=== PATIENT | male | born 1970 | race Caucasian/White ===

== ENCOUNTER 2020-07-10 13:00 | Inpatient (IN) ==
[2020-07-10] MEDS ORDERED: SODIUM CHLORIDE 0.9% 1000ML 1,000 ML IV ONE (13:45)
--- NOTE | 2020-07-10 13:53 | Emergency Department Note ---
History of Present Illness General Chief complaint: Weakness Stated complaint: WEAKNESS Time Seen by Provider: 07/10/20 13:36 Source: patient Mode of arrival: ambulatory Limitations: no limitations History of Present Illness This patient is a 50-year-old male who comes in after feeling dizzy and lightheaded since yesterday. He denies spinning but says he feels off balance when walking he fell 3 times today and 4 times yesterday. He said some chronic ringing in his left ear. No headache. He does not feel is any change with movement. No neck pain or stiffness. Denies chest pain or shortness of breath or abdominal pain. No blood or melena stool no dysuria or hematuria. Denies any change in vision or difficulty speaking or swallowing. He did get bit by a tick in January in his left chest. He removed it there is no rash. No history of similar. Home Medications Medication Instructions Recorded Confirmed Type lansoprazole [Prevacid 24Hr] 15 mg PO QAM 07/10/20 07/10/20 History Allergies Allergy/AdvReac Type Severity Reaction Status Date / Time No Known Allergies Allergy Verified 10/06/19 09:13 Past Med/Surg History Medical History (Updated 07/10/20 @ 19:35 by Fortino Augustin MD) Toe amputee Surgical History H/O hernia repair Family History Other Myocardial infarction Denies family history of Ovarian cancer Prostate cancer Breast cancer Colorectal cancer Social History Smoking Status: Current every day smoker Tobacco Type: Cigarettes Hx Alcohol Use: No Hx Substance Use: No marital status: Single Current Living Situation: Family current occupational status: unemployed How many Children do You have: 4 Feels Safe at Home: Yes caffeine: Yes Dental Care, Regularly: No Physical Activity Frequency: Does not Exercise Seatbelt Use: never Sunscreen Use: No Immunizations: Past medical historydenies Social history 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 He does smoke heavily. He denies alcohol use. Denies drug use. Review of Systems A total of 10 systems reviewed and were otherwise negative Physical Exam Vital Signs Vital Signs - 24 hr 07/10/20 13:14 05/02/21 13:36 07/10/20 13:38 Temperature 36.9 C Temperature Source Temporal Artery Scan Pulse Rate 92 H 96 H Pulse Rate [Apical] Pulse Rate from SpO2 Sensor 99 H Respiratory Rate 18 16 Respiratory Effort / Characteristics Non-Labored Respiratory Depth Normal Blood Pressure 152/102 H 130/96 Blood Pressure [Left Arm] Blood Pressure Mean 118 107 Blood Pressure Mean [Left Arm] Blood Pressure Position Sitting Pulse Oximetry 97 97 95 Oxygen Delivery Method Room Air Room Air Room Air Sepsis Recent Fever Within 48 Hours No Sepsis New/Unexplained Change in Mental Status No Sepsis Action Taken by Nursing No Action Required 07/10/20 14:00 07/10/20 14:01 07/10/20 14:31 Temperature Temperature Source Pulse Rate 98 H 94 H 83 Pulse Rate [Apical] Pulse Rate from SpO2 Sensor 97 H 95 H 84 Respiratory Rate 20 23 15 Respiratory Effort / Characteristics Respiratory Depth Blood Pressure 135/100 151/102 H Blood Pressure [Left Arm] Blood Pressure Mean 111 118 Blood Pressure Mean [Left Arm] Blood Pressure Position Pulse Oximetry 95 96 97 Oxygen Delivery Method Room Air Room Air Sepsis Recent Fever Within 48 Hours Sepsis New/Unexplained Change in Mental Status Sepsis Action Taken by Nursing 07/10/20 14:32 07/10/20 15:00 07/10/20 15:01 Temperature Temperature Source Pulse Rate 80 73 80 Pulse Rate [Apical] Pulse Rate from SpO2 Sensor 80 79 Respiratory Rate 19 17 16 Respiratory Effort / Characteristics Respiratory Depth Blood Pressure 127/81 Blood Pressure [Left Arm] Blood Pressure Mean 96 Blood Pressure Mean [Left Arm] Blood Pressure Position Pulse Oximetry 95 96 Oxygen Delivery Method Sepsis Recent Fever Within 48 Hours Sepsis New/Unexplained Change in Mental Status Sepsis Action Taken by Nursing 07/10/20 15:30 07/10/20 16:00 07/10/20 18:22 Temperature Temperature Source Pulse Rate 67 Pulse Rate [Apical] 80 Pulse Rate from SpO2 Sensor 67 77 Respiratory Rate 19 18 Respiratory Effort / Characteristics Respiratory Depth Blood Pressure 122/67 136/76 Blood Pressure [Left Arm] 149/91 H Blood Pressure Mean 85 96 Blood Pressure Mean [Left Arm] 110 Blood Pressure Position Pulse Oximetry 95 96 95 Oxygen Delivery Method Room Air Sepsis Recent Fever Within 48 Hours Sepsis New/Unexplained Change in Mental Status Sepsis Action Taken by Nursing General: Well developed well nourished middle-age male who appears in no acute distress, breathing comfortably on room air. Normal speech HEENT: Normal cephalic atraumatic.sclera anicteric pupils are equal round and reactive to light. Extraocular movements are intact. Oropharynx is pink with moist mucous membranes. No swelling of the mouth lips or tongue. Neck: Supple with a midline trachea. No meningeal signs or stiffness, no JVD or bruits. No Stridor. Chest: Clear to auscultation bilaterally. No wheezes or rhonchi. No increased work of breathing. Heart: Regular rate and rhythm without murmurs or gallops. Abdomen: Soft nontender, nondistended without rebound guarding or rigidity. Extremities: No cyanosis clubbing or edema. No calf tenderness or assymetry Spine/Back. Non tender to palpation. No CVA tenderness Skin: Good turgor without rashes. Neurologic exam: Cranial nerves two through 12 are intact. Motor and sensation are intact and symmetrical throughout. Finger-nose intact. No pronator drift. Course Administered Medications Discontinued Medications Aspirin (Aspirin 81 Mg Chew) 324 mg PO NOW STA Stop: 07/10/20 19:29 Last Admin: 07/10/20 19:43 Dose: 324 mg Documented by: [id number] Sodium Chloride (Nss 1000ml) 1,000 mls @ 999 mls/hr IV .Q1H1M ONE Stop: 07/10/20 14:45 Last Infusion: 07/10/20 19:13 Dose: 0 mls/hr Documented by: [id number] Admin: 07/10/20 14:33 Dose: 999 mls/hr Documented by: [id number] Ioversol (Optiray 350 500ml) 120 ml IV ONCE ONE Stop: 07/10/20 15:12 Last Admin: 07/10/20 15:11 Dose: 120 ml Documented by: [id number] Medical Decision Making Differential Diagnosis Vertigo, intracranial mass, intracranial hemorrhage, vascular disease, cardiac disease, electrolyte or metabolic abnormality, anemia, sepsis Medical Records Attestation: I reviewed the patient's medical records. Home Medications Current Medication List: was personally reviewed by me Laboratory Data Attestation: I reviewed the patient's lab results. Result diagrams: 07/10/20 14:05 07/10/20 14:05 Lab Results 07/10/20 07/10/20 07/10/20 Range/Units 13:35 14:05 14:05 WBC 9.51 (4.8-10.8) K/uL RBC 5.26 (4.7-6.1) M/uL Hgb 16.5 (14.0-18.0) g/dL Hct 47.5 (42-52) % MCV 90.3 (80-100) fL MCH 31.4 (25-34) pg MCHC 34.7 (32-36) g/dL RDW Std Deviation 41.7 (36.4-46.3) fL RDW Coeff of Jojo 12.6 (11.5-14.5) % Plt Count 236 (130-400) K/uL MPV 9.6 (7.4-10.4) fL Immature Gran % (Auto) 0.2 % Neut % (Auto) 64.2 % Lymph % (Auto) 26.7 % [place] % (Auto) 8.1 % Eos % (Auto) 0.6 % Baso % (Auto) 0.2 % Neut # (Auto) 6.10 (1.4-6.5) K/uL Lymph # (Auto) 2.54 (1.2-3.4) K/uL [place] # (Auto) 0.77 H (0.11-0.59) K/uL Eos # (Auto) 0.06 (0-0.5) K/uL Baso # (Auto) 0.02 (0-0.2) K/uL Immature Gran # (Auto) 0.02 (0.00-0.02) K/uL PT (9.0-12.0) Seconds INR (0.9-1.1) APTT (21.0-31.0) Seconds PTT Ratio Sodium 140 (136-145) mmol/L Potassium 4.2 (3.5-5.1) mmol/L Chloride 108 H (98-107) mmol/L Carbon Dioxide 26 (21-32) mmol/L Anion Gap 6.0 (3-11) BUN 13 (7-18) mg/dl Creatinine 1.01 (0.6-1.4) mg/dl Est Cr Clr Drug Dosing 95.3 ml/min Est GFR ( Amer) 101.5 Est GFR (Non-Af Amer) 87.5 BUN/Creatinine Ratio 13.1 (10-20) Glucose 88 (70-99) mg/dl Calcium 8.6 (8.5-10.1) mg/dl Magnesium 2.2 (1.8-2.4) mg/dl Total Bilirubin 0.4 (0.2-1) mg/dl AST 12 L (15-37) U/L ALT 20 (12-78) U/L Alkaline Phosphatase 77 (45-117) U/L Troponin I < 0.015 (0-0.045) ng/ml Total Protein 6.8 (6.4-8.2) gm/dl Albumin 3.8 (3.4-5.0) gm/dl Globulin 3.0 (2.5-4.0) gm/dl Albumin/Globulin Ratio 1.3 (0.9-2) Urine Color Dark Yellow Urine Appearance Clear (Clear) Urine pH 6.5 (4.5-7.5) Ur Specific [place] 1.020 (1.000-1.030) Urine Protein Negative (Negative) Urine Glucose (UA) Negative (Negative) Urine Ketones 2+ H (Negative) Urine Blood Negative (Negative) Urine Nitrite Negative (Negative) Urine Bilirubin Negative (Negative) Urine Urobilinogen Negative (Negative) Ur Leukocyte Esterase Negative (Negative) Anaplasma Smear See Comment Lyme Disease IgG Ab (Negative) Lyme Disease IgM Ab (Negative) COVID-19 Eval Order SARS-CoV-2 (PCR) (Negative) Influenza Type A (PCR) (Neg) Influenza Type B (PCR) (Neg) RSV (RT-PCR) (Neg) 07/10/20 07/10/20 07/10/20 Range/Units 14:05 14:05 14:15 WBC (4.8-10.8) K/uL RBC (4.7-6.1) M/uL Hgb (14.0-18.0) g/dL Hct (42-52) % MCV (80-100) fL MCH (25-34) pg MCHC (32-36) g/dL RDW Std Deviation (36.4-46.3) fL RDW Coeff of Jojo (11.5-14.5) % Plt Count (130-400) K/uL MPV (7.4-10.4) fL Immature Gran % (Auto) % Neut % (Auto) % Lymph % (Auto) % [place] % (Auto) % Eos % (Auto) % Baso % (Auto) % Neut # (Auto) (1.4-6.5) K/uL Lymph # (Auto) (1.2-3.4) K/uL [place] # (Auto) (0.11-0.59) K/uL Eos # (Auto) (0-0.5) K/uL Baso # (Auto) (0-0.2) K/uL Immature Gran # (Auto) (0.00-0.02) K/uL PT 10.2 (9.0-12.0) Seconds INR 1.0 (0.9-1.1) APTT 27.9 (21.0-31.0) Seconds PTT Ratio 1.1 Sodium (136-145) mmol/L Potassium (3.5-5.1) mmol/L Chloride (98-107) mmol/L Carbon Dioxide (21-32) mmol/L Anion Gap (3-11) BUN (7-18) mg/dl Creatinine (0.6-1.4) mg/dl Est Cr Clr Drug Dosing ml/min Est GFR ( Amer) Est GFR (Non-Af Amer) BUN/Creatinine Ratio (10-20) Glucose (70-99) mg/dl Calcium (8.5-10.1) mg/dl Magnesium (1.8-2.4) mg/dl Total Bilirubin (0.2-1) mg/dl AST (15-37) U/L ALT (12-78) U/L Alkaline Phosphatase (45-117) U/L Troponin I (0-0.045) ng/ml Total Protein (6.4-8.2) gm/dl Albumin (3.4-5.0) gm/dl Globulin (2.5-4.0) gm/dl Albumin/Globulin Ratio (0.9-2) Urine Color Urine Appearance (Clear) Urine pH (4.5-7.5) Ur Specific [place] (1.000-1.030) Urine Protein (Negative) Urine Glucose (UA) (Negative) Urine Ketones (Negative) Urine Blood (Negative) Urine Nitrite (Negative) Urine Bilirubin (Negative) Urine Urobilinogen (Negative) Ur Leukocyte Esterase (Negative) Anaplasma Smear Lyme Disease IgG Ab Negative (Negative) Lyme Disease IgM Ab Negative (Negative) COVID-19 Eval Order CovFluRsv at [facility] SARS-CoV-2 (PCR) (Negative) Influenza Type A (PCR) (Neg) Influenza Type B (PCR) (Neg) RSV (RT-PCR) (Neg) 07/10/20 Range/Units 14:15 WBC (4.8-10.8) K/uL RBC (4.7-6.1) M/uL Hgb (14.0-18.0) g/dL Hct (42-52) % MCV (80-100) fL MCH (25-34) pg MCHC (32-36) g/dL RDW Std Deviation (36.4-46.3) fL RDW Coeff of Jojo (11.5-14.5) % Plt Count (130-400) K/uL MPV (7.4-10.4) fL Immature Gran % (Auto) % Neut % (Auto) % Lymph % (Auto) % [place] % (Auto) % Eos % (Auto) % Baso % (Auto) % Neut # (Auto) (1.4-6.5) K/uL Lymph # (Auto) (1.2-3.4) K/uL [place] # (Auto) (0.11-0.59) K/uL Eos # (Auto) (0-0.5) K/uL Baso # (Auto) (0-0.2) K/uL Immature Gran # (Auto) (0.00-0.02) K/uL PT (9.0-12.0) Seconds INR (0.9-1.1) APTT (21.0-31.0) Seconds PTT Ratio Sodium (136-145) mmol/L Potassium (3.5-5.1) mmol/L Chloride (98-107) mmol/L Carbon Dioxide (21-32) mmol/L Anion Gap (3-11) BUN (7-18) mg/dl Creatinine (0.6-1.4) mg/dl Est Cr Clr Drug Dosing ml/min Est GFR ( Amer) Est GFR (Non-Af Amer) BUN/Creatinine Ratio (10-20) Glucose (70-99) mg/dl Calcium (8.5-10.1) mg/dl Magnesium (1.8-2.4) mg/dl Total Bilirubin (0.2-1) mg/dl AST (15-37) U/L ALT (12-78) U/L Alkaline Phosphatase (45-117) U/L Troponin I (0-0.045) ng/ml Total Protein (6.4-8.2) gm/dl Albumin (3.4-5.0) gm/dl Globulin (2.5-4.0) gm/dl Albumin/Globulin Ratio (0.9-2) Urine Color Urine Appearance (Clear) Urine pH (4.5-7.5) Ur Specific [place] (1.000-1.030) Urine Protein (Negative) Urine Glucose (UA) (Negative) Urine Ketones (Negative) Urine Blood (Negative) Urine Nitrite (Negative) Urine Bilirubin (Negative) Urine Urobilinogen (Negative) Ur Leukocyte Esterase (Negative) Anaplasma Smear Lyme Disease IgG Ab (Negative) Lyme Disease IgM Ab (Negative) COVID-19 Eval Order SARS-CoV-2 (PCR) NEGATIVE (Negative) Influenza Type A (PCR) Negative (Neg) Influenza Type B (PCR) Negative (Neg) RSV (RT-PCR) Negative (Neg) Imaging Data Radiologist's Impression: Chest X-Ray 07/10/20 13:46 XR chest 1V portable HISTORY: 50 years-old Male SEPSIS acute sepsis COMPARISON: None TECHNIQUE: Portable AP view of the chest FINDINGS: Cardiomediastinal and hilar silhouettes are within normal limits. No pneumothorax, pleural effusion, airspace consolidation or overt pulmonary edema. Bones of the chest appear grossly intact. IMPRESSION: No acute process. ACT 112: Negative or not required by law. The above report was generated using voice recognition software. It may contain grammatical, syntax or spelling errors. Electronically signed by: Mohit Ward M.D. 07/10/2020 2:[address] 07/10/20 13:48 CT head/brain wo con CLINICAL HISTORY: 50 years-old Male with dizziness. Acute dizziness with loss of balance TECHNIQUE: Multiple axial CT images of the head were obtained without contrast. A dose lowering technique was utilized adhering to the principles of ALARA. COMPARISON: CTA had and neck of same day FINDINGS: No acute intracranial hemorrhage, midline shift, intracranial mass, hydrocephalus, territorial ischemia or abnormal extra-axial collection. Mild indeterminate white matter hypodensities, most pronounced within the right c soraida radiata and anterior limb of the internal capsule. 10 mm hypodensity of the right lentiform nucleus. The calvarium is intact. The paranasal sinuses, mastoid air cells, and middle ear cavities are clear. IMPRESSION: 1. No acute intracranial hemorrhage, midline shift or acute territorial infarct. 2. Indeterminate ill-defined white matter hypodensities, most pronounced in the right cerebral hemisphere. These are nonspecific with differential considerations including chronic microvascular ischemic disease versus demyelinating process among other etiologies. 3. 10 mm hypodense focus of the right lentiform nucleus suggests chronic lacunar infarct. ACT 112: Negative or not required by law. The above report was generated using voice recognition software. It may contain grammatical, syntax or spelling errors. Electronically signed by: Mohit Ward M.D. 07/10/2020 3:33 PM Head CTA 07/10/20 13:58 CT angio neck with con, CT angio head w con CLINICAL HISTORY: 50 years-old Male with dizziness. Acute dizziness with loss of balance COMPARISON STUDY: Head CT of same day TECHNIQUE: Following the IV administration of 120 mL of Optiray, CT angiogram of the head and neck was performed from the aortic arch to the skull apex. Images are reviewed in the axial, sagittal, and coronal planes. 3-D MIPS images are created and assessed. IV contrast was administered without complication. All measurements were calculated based on NASCET criteria. A dose lowering technique was utilized adhering to the principles of ALARA. CT DOSE: 1243.48 mGy.cm FINDINGS: Unremarkable thoracic aortic arch. Patency of innominate and imaged subclavian arteries. The common and internal carotid arteries are patent. Minimal mixed plaque of the carotid bulbs and proximal cervical segments of the internal carotid arteries. The left middle cerebral artery is patent. There is no flow present within a 1.3 cm segment of the right middle cerebral artery. Reconstitution of flow within the distal M1 segment just proximal to the bifurcation. There is diminished flow within the distal right MCA branches compared to the left. The anterior cerebral arteries are patent. Codominant and widely patent vertebral arteries. The basilar and posterior cerebral arteries are patent. Cerebral venous sinuses are patent. There is no abnormal intracranial enhancement. Ill-defined hypoattenuating foci throughout the right cerebral hemisphere white matter redemonstrated. No pneumothorax. Emphysema. Unremarkable soft tissues. Mild polypoid mucosal thickening of the maxillary sinuses. No acute fracture. IMPRESSION: 1. 1.3 segment of the right middle cerebral artery is occluded. There is reconstitution of flow within the distal M1 segment just proximal to the bifurcation. 2. Otherwise unremarkable CTA of the head and neck. ACT 112: Negative or not required by law. The above report was generated using voice recognition software. It may contain grammatical, syntax or spelling errors. Electronically signed by: Mohit Ward M.D. 07/10/2020 3:42 PM Neck CTA 07/10/20 13:58 CT angio neck with con, CT angio head w con CLINICAL HISTORY: 50 years-old Male with dizziness. Acute dizziness with loss of balance COMPARISON STUDY: Head CT of same day TECHNIQUE: Following the IV administration of 120 mL of Optiray, CT angiogram of the head and neck was performed from the aortic arch to the skull apex. Images are reviewed in the axial, sagittal, and coronal planes. 3-D MIPS images are created and assessed. IV contrast was administered without complication. All measurements were calculated based on NASCET criteria. A dose lowering technique was utilized adhering to the principles of ALARA. CT DOSE: 1243.48 mGy.cm FINDINGS: Unremarkable thoracic aortic arch. Patency of innominate and imaged subclavian arteries. The common and internal carotid arteries are patent. Minimal mixed plaque of the carotid bulbs and proximal cervical segments of the internal carotid arteries. The left middle cerebral artery is patent. There is no flow present within a 1.3 cm segment of the right middle cerebral artery. Reconstitution of flow within the distal M1 segment just proximal to the bifurcation. There is diminished flow within the distal right MCA branches compared to the left. The anterior cerebral arteries are patent. Codominant and widely patent vertebral arteries. The basilar and posterior cerebral arteries are patent. Cerebral venous sinuses are patent. There is no abnormal intracranial enhancement. Ill-defined hypoattenuating foci throughout the right cerebral hemisphere white matter redemonstrated. No pneumothorax. Emphysema. Unremarkable soft tissues. Mild polypoid mucosal thickening of the maxillary sinuses. No acute fracture. IMPRESSION: 1. 1.3 segment of the right middle cerebral artery is occluded. There is reconstitution of flow within the distal M1 segment just proximal to the bifurcation. 2. Otherwise unremarkable CTA of the head and neck. ACT 112: Negative or not required by law. The above report was generated using voice recognition software. It may contain grammatical, syntax or spelling errors. Electronically signed by: Mohit Ward M.D. 07/10/2020 3:42 PM Brain MRI 07/10/20 16:28 MR brain wo con HISTORY: 50 years-old Male dizziness, eval for cva . Acute dizziness with strokelike symptoms. COMPARISON: Head CT, CTA head and neck studies of same day TECHNIQUE: Multiplanar multisequence MRI of the brain was obtained without the use of IV contrast. FINDINGS: Numerous areas of restricted diffusion are noted within the centrum semiovale of the right cerebral hemisphere with additional foci involving the cortical and subcortical distributions of the right frontal and parietal lobes, right external capsule/lentiform nucleus. Most of these foci are subcentimeter, largest of which measures 1.6 cm. There is decreased signal on ADC map. Mildly increased T2/FLAIR signal. No acute intracranial hemorrhage, midline shift, abnormal extra-axial collec tion, hydrocephalus or intracranial mass. No pathologic blooming artifact. [id number] scattered T2/FLAIR hyperintensities throughout the white matter of the bilateral cerebral hemispheres. Study is motion degraded. Cerebral venous sinuses and major arterial flow voids are patent. Trace mastoid effusions. Mild mucosal thickening of the paranasal sinuses. The skull, orbits and soft tissues are unremarkable. IMPRESSION: 1. Numerous small acute infarcts of the right cerebral hemisphere watershed distribution. 2. No acute intracranial hemorrhage. 3. Mild to moderate scattered T2/FLAIR hyperintensities throughout the white matter are nonspecific however favor early chronic microvascular ischemic dise ase. ACT 112: Negative or not required by law. The above report was generated using voice recognition software. It may contain grammatical, syntax or spelling errors. Electronically signed by: Mohit Ward M.D. 07/10/2020 7:13 PM ECG Data Attestation: I personally reviewed and interpreted this ECG as follows: Indication: + weakness Rate (beats per minute): 85 ECG Intervals/blocks: + Right Bundle branch block and + Normal QT ECG [place]: + Normal ECG ST segments: + Normal ST segments ECG Findings: no PACs and no PVCs Comparison ECG Date: no prior available MDM Narrative This patient comes in complaining of dizziness. He looks well on exam has a normal neurologic exam he spent a hard time walking at times. He has a normal neurologic exam. IV access was established and he was hydrated with IV normal saline. I did multiple blood test and EKG. He was placed on a assistant manager/embalmer. EKG does not suggest acute coronary syndrome or arrhythmia. He has no white count or fever to suggest infection. He has no acute electrolyte or metabolic abnormality. Lyme titer and anaplasmosis were negative. Covid testing was negative. His symptoms started yesterday and he is well outside the window for TPA or likely intervention at this point. Additionally he is reluctant to have any studies done and anything I had to do I had to talk to him at length and convince him that it was necessary. CAT scan of the head does show occlusion of the MCA with 3 collateralization. I talked to the radiologist about this and he cannot tell if this is old or new. There are also some nonspecific changes whic h may be either related to stroke or demyelinating disease or other etiologies. The radiologist did recommend MRI. I talked to the patient at length. He was very reluctant to get any further work-up or stay in the hospital. He kept asking to go smoke which I told him we could not allow him to but I offered to give him nicotine gum or a nicotine patch. I told him I am very concerned about him and I think he needs to stay in the hospital and further testing done. He had us call his mom from the waiting room and we brought her back and we did convince him to do the MRI. The MRI does show numerous acute infarcts of the right cerebral hemisphere watershed watershed distribution no intracranial hemorrhage. There is some chronic microvascular ischemic disease throughout the white matter. He was given aspirin 324 mg chewable. Again I told him I think we need to keep him in the hospital he seems very reluctant he is concerned that he needs to smoke and eat. I did order him a meal tray and again offered to give him nicotine replacement. I did discuss the case with the on-call neuro logist who agrees with the plan and suggested that we do a hypercoagulation work-up as well as a CRP and UDS and possibly work-up the patient for malignancy. We also looked at the CTA and the patient and the radiologist did comment on the venous system and there is no venous thrombosis seen. Although the patient was very reluctant to stay, his mother did convince him and Dr. Palmer will be seeing the patient for admission/observation. I also did have case management talk to him about billing and his lack of insurance as this was a big concern for him. I told him that regardless of his ability to pay, we do want to take care of him and I feel that the best treatment is admission. Continuous cardiac monitoring: Due to the chief complaint of dizziness he was placed on a continuous assistant manager/embalmer. Upon my evaluation he was noted to be in normal sinus rhythm with a rate of 85 Impression & Plan Acute CVA (cerebrovascular accident), Ambulatory dysfunction, Cigarette smoker, Lab test negative for COVID-19 virus Discharge Plan Visit Data Chief Complaint: Weakness Stated Complaint: WEAKNESS ED Provider: Fortino Augustin Discharge Problem: Acute CVA (cerebrovascular accident), Ambulatory dysfunction, Cigarette smoker, Lab test negative for COVID-19 virus Forms Stand Alone Forms: [facility] Prescriptions Prescriptions: No Action lansoprazole [Prevacid 24Hr] 15 mg Capsule,Delayed Release(Dr/Ec) 15 mg PO QAM RF: 0
[2020-07-10 14:14] LABS: Appearance Urine Clear (Clear); Bilirubin Urine Negative (Negative); Blood Urine Negative (Negative); Color Urine Dark Yellow; Glucose Urine UA Negative (Negative); Ketones Urine 2+ (Negative); Leukocyte Esterase Urine Negative (Negative); Nitrite Urine Negative (Negative); Protein Urine Negative (Negative); Urobilinogen Urine Negative (Negative); pH Urine 6.5 (4.5-7.5)
[2020-07-10 14:17] LABS: Basophils # (auto) 0.02 K/uL (0-0.2); Basophils % (auto) 0.2 %; Eosinophils # (auto) 0.06 K/uL (0-0.5); Eosinophils % (auto) 0.6 %; Hematocrit (blood only) 47.5 % (42-52); Hemoglobin 16.5 g/dL (14.0-18.0); Immature Granulocytes # (auto) 0.02 K/uL (0.00-0.02); Immature Granulocytes % (auto) 0.2 %; Lymphocytes # (auto) 2.54 K/uL (1.2-3.4); Lymphocytes % (auto) 26.7 %; Mean Corpuscular Hemoglobin 31.4 pg (25-34); Mean Corpuscular Hgb Conc 34.7 g/dL (32-36); Mean Corpuscular Volume 90.3 fL (80-100); Mean Platelet Volume 9.6 fL (7.4-10.4); Monocytes # (auto) 0.77 K/uL (0.11-0.59); Monocytes % (auto) 8.1 %; Neutrophils % (auto) 64.2 %; Platelet Count 236 K/uL (130-400); RDW Coefficient of Variation 12.6 % (11.5-14.5); RDW Standard Deviation 41.7 fL (36.4-46.3); Red Blood Count 5.26 M/uL (4.7-6.1); White Blood Count 9.51 K/uL (4.8-10.8)
--- NOTE | 2020-07-10 14:23 | XRay Report ---
XR chest 1V portable HISTORY: 50 years-old Male SEPSIS acute sepsis COMPARISON: None TECHNIQUE: Portable AP view of the chest FINDINGS: Cardiomediastinal and hilar silhouettes are within normal limits. No pneumothorax, pleural effusion, airspace consolidation or overt pulmonary edema. Bones of the chest appear grossly intact. IMPRESSION: No acute process. ACT 112: Negative or not required by law. The above report was generated using voice recognition software. It may contain grammatical, syntax o r spelling errors. Electronically signed by: Mohit Ward M.D. 07/10/2020 2:22 PM
[2020-07-10 14:28] LABS: Partial Thromboplastin Ratio 1.1; Partial Thromboplastin Time 27.9 Seconds (21.0-31.0); Prothrombin Time 10.2 Seconds (9.0-12.0)
[2020-07-10 14:34] LABS: Alanine Aminotransferase 20 U/L (12-78); Albumin Level 3.8 gm/dl (3.4-5.0); Aspartate Aminotransferase 12 U/L (15-37); BUN Creatinine Ratio 13.1 (10-20); Blood Urea Nitrogen 13 mg/dl (7-18); Calcium 8.6 mg/dl (8.5-10.1); Carbon Dioxide 26 mmol/L (21-32); Chloride 108 mmol/L (98-107); Creatinine Clr Calc Pharmacy 95.3 ml/min; Est GFR (African American) 101.5; Est GFR (Non-African American) 87.5; Glucose 88 mg/dl (70-99); Magnesium 2.2 mg/dl (1.8-2.4); Potassium 4.2 mmol/L (3.5-5.1); Sodium 140 mmol/L (136-145)
[2020-07-10 14:39] LABS: Albumin Globulin Ratio 1.3 (0.9-2); Alkaline Phosphatase 77 U/L (45-117); Bilirubin,Total 0.4 mg/dl (0.2-1); Total Protein 6.8 gm/dl (6.4-8.2); Troponin I < 0.015 ng/ml (0-0.045)
[2020-07-10 15:01] LABS: Influenza A virus by PCR Negative (Neg); Influenza B virus by PCR Negative (Neg); RSV by PCR Negative (Neg); SARS CoV2 RNA(COVID-19) InHosp NEGATIVE (Negative)
[2020-07-10 15:11] LABS: Lyme Ab IgG w/WB Rflx Negative (Negative); Lyme Ab IgM w/WB Rflx Negative (Negative)
[2020-07-10] MEDS ORDERED: OPTIRAY 350 500ml IV ONE (15:11)
--- NOTE | 2020-07-10 15:35 | CT Scan Report ---
CT head/brain wo con CLINICAL HISTORY: 50 years-old Male with dizziness. Acute dizziness with loss of balance TECHNIQUE: Multiple axial CT images of the head were obtained without contrast. A dose lowering tech nique was utilized adhering to the principles of ALARA. COMPARISON: CTA had and neck of same day FINDINGS: No acute intracranial hemorrhage, midline shift, intracranial mass, hydrocephalus, territorial ischem ia or abnormal extra-axial collection. Mild indeterminate white matter hypodensities, most pronounced within the right paige radiata and anterior limb of the internal capsule. 10 mm hypodensity of the right lentiform nucleus. The calvarium is intact. The paranasal sinuses, mastoid air cells, and middle ear cavities are clear . IMPRESSION: 1. No acute intracranial hemorrhage, midline shift or acute territorial infarct. 2. Indeterminate ill-defined white matter hypodensities, most pronounced in the right cerebral hemisp here. These are nonspecific with differential considerations including chronic microvascular ischemic disease versus demyelinating process among other etiologies. 3. 10 mm hypodense focus of the right lentiform nucleus suggests chronic lacunar infarct. ACT 112: Negative or not required by law. The above report was generated using voice recognition software. It may contain grammatical, syntax o r spelling errors. Electronically signed by: Mohit Ward M.D. 07/10/2020 3:33 PM
--- NOTE | 2020-07-10 15:43 | CT Scan Report ---
CT angio neck with con, CT angio head w con CLINICAL HISTORY: 50 years-old Male with dizziness. Acute dizziness with loss of balance COMPARISON STUDY: Head CT of same day TECHNIQUE: Following the IV administration of 120 mL of Optiray, CT angiogram of the head and neck wa s performed from the aortic arch to the skull apex. Images are reviewed in the axial, sagittal, and c oronal planes. 3-D MIPS images are created and assessed. IV contrast was administered without complic ation. All measurements were calculated based on NASCET criteria. A dose lowering technique was util ized adhering to the principles of ALARA. CT DOSE: 1243.48 mGy.cm FINDINGS: Unremarkable thoracic aortic arch. Patency of innominate and imaged subclavian arteries. The common a nd internal carotid arteries are patent. Minimal mixed plaque of the carotid bulbs and proximal cervi bubba segments of the internal carotid arteries. The left middle cerebral artery is patent. There is no flow present within a 1.3 cm segment of the ri ght middle cerebral artery. Reconstitution of flow within the distal M1 segment just proximal to the bifurcation. There is diminished flow within the distal right MCA branches compared to the left. The anterior cerebral arteries are patent. Codominant and widely patent vertebral arteries. The basilar and posterior cerebral arteries are flores nt. Cerebral venous sinuses are patent. There is no abnormal intracranial enhancement. Ill-defined hy poattenuating foci throughout the right cerebral hemisphere white matter redemonstrated. No pneumotho rax. Emphysema. Unremarkable soft tissues. Mild polypoid mucosal thickening of the maxillary sinuses. No acute fracture. IMPRESSION: 1. 1.3 segment of the right middle cerebral artery is occluded. There is reconstitution of flow withi n the distal M1 segment just proximal to the bifurcation. 2. Otherwise unremarkable CTA of the head and neck. ACT 112: Negative or not required by law. The above report was generated using voice recognition software. It may contain grammatical, syntax o r spelling errors. Electronically signed by: Mohit Ward M.D. 07/10/2020 3:42 PM
--- NOTE | 2020-07-10 19:14 | Magnetic Resonance Report ---
MR brain wo con HISTORY: 50 years-old Male dizziness, eval for cva . Acute dizziness with strokelike symptoms. COMPARISON: Head CT, CTA head and neck studies of same day TECHNIQUE: Multiplanar multisequence MRI of the brain was obtained without the use of IV contrast. FINDINGS: Numerous areas of restricted diffusion are noted within the centrum semiovale of the right cerebral h emisphere with additional foci involving the cortical and subcortical distributions of the right fron agustín and parietal lobes, right external capsule/lentiform nucleus. Most of these foci are subcentimete r, largest of which measures 1.6 cm. There is decreased signal on ADC map. Mildly increased T2/FLAIR signal. No acute intracranial hemorrhage, midline shift, abnormal extra-axial collection, hydrocephalus or in tracranial mass. No pathologic blooming artifact. Sajd-gw-fnxcjapl scattered T2/FLAIR hyperintensitie s throughout the white matter of the bilateral cerebral hemispheres. Study is motion degraded. Cerebr al venous sinuses and major arterial flow voids are patent. Trace mastoid effusions. Mild mucosal thi ckening of the paranasal sinuses. The skull, orbits and soft tissues are unremarkable. IMPRESSION: 1. Numerous small acute infarcts of the right cerebral hemisphere watershed distribution. 2. No acute intracranial hemorrhage. 3. Mild to moderate scattered T2/FLAIR hyperintensities throughout the white matter are nonspecific h owever favor early chronic microvascular ischemic disease. ACT 112: Negative or not required by law. The above report was generated using voice recognition software. It may contain grammatical, syntax o r spelling errors. Electronically signed by: Mohit Ward M.D. 07/10/2020 7:13 PM
[2020-07-10] MEDS ORDERED: ASPIRIN 81 MG CHEW PO STA (19:28)
[2020-07-10 20:26] LABS: C Reactive Protein < 0.29 mg/dl (0-0.29)
--- NOTE | 2020-07-10 20:44 | History & Physical Report ---
Date of Service July 10, 2020 Assessment & Plan (1) Acute CVA (cerebrovascular accident): 50 yo M PMHx HTN, significant smoking history admitted for acute CVA. Acute CVA, HTN, current smoker: -Presents with dizziness, falls, and left ear ringing that started yesterday. -Head CT performed: 10 mm hypodense focus of the right lentiform nucleus suggests chronic lacunar infarct. Concern for numerous acute or subacute small infarcts throughout the RIGHT cerebral hemispheres. -Head/Neck CTA performed: Segment of the RIGHT MCA is occluded. There is reconstitution of flow within the distal M1 segment just proximal to the bifurcation. -MRI performed: Numerous small acute infarcts of the RIGHT cerebral hemisphere in watershed distribution. Mild to moderate scattered T2/FLAIR hyperintensities throughout white matter favoring early chronic microvascular ischemic disease. -Hgb A1c ordered. -Lipid panel ordered: total cholesterol 263, LDL 169, HDL 32, TG 311. -Will start patient on aspirin and high-intensity statin. -Smoking cessation urged. -Given patient's age, while extensive smoking history likely contributed greatly to patient's CVA, have also ordered hypercoagulability workup. -TTE ordered for AM to rule out PFO. -Continuous cardiac monitoring, frequent neuro checks. PT/OT ordered. No concerns with swallowing; Heart Healthy diet. Suspect patient will be discharged to home rather than to rehab facility. -Allow for permissive HTN in the acute CVA period, however, will require long- term control of BP for secondary prevention. -Heparin SQ for DVT ppx. -Patient does not have insurance which is of major concern to him and his family regarding cost; Mica Patcher consult placed to assist with insurance application. GERD: Continue PPI. Code Status: FULL CODE FEN: Heart Healthy DVT ppx: Heparin 5000u SQ BID Dispo: telemetry for neuro checks, cardiac monitoring, stroke work up (2) GERD (gastroesophageal reflux disease): (3) Cigarette smoker: (4) HTN (hypertension): History of Present Illness Chief Complaint: dizziness, falls, ringing in ears Primary Care Provider: Pankaj Ha, 50 yo M PMHx HTN, significant smoking history presented to the ER with his mother for complaints of dizziness and falls starting yesterday. Specifically, he reports feeling significantly off-balance, and has had about 7 falls since yesterday afternoon. He also endorses ringing in his left ear, however the ringing is chronic. He denies headache, chest pain, SOB, fevers or chills, a bdominal pain, nausea, vomiting. He endorses significant smoking history, at least 50 pack years of smoking, and he currently smokes 1.5-2 packs daily. Has "tried quitting in the past, but Chantix was too expensive". His mother and brother who also live with him also smoke. History of CVA in his maternal grandmother and grandfather. No history of DVT/PE to his or his mother's knowledge. Does not report having a PCP; last seen about a year ago for a physical "just so I could go to work". Per EMR at that time his BP was mildly elevated and he was advised to return for BP recheck, but did not. In the ER patient had CT Head, CTA Head/Neck which showed chronic right lacunar infarct and numerous acute/subacute right cerebral hemisphere strokes, with segment of right MCA occluded. MRI Brain performed which confirmed numerous small acute right cerebral hemisphere infarcts in watershed distribution. Hospitalist service was consulted for admission for acute CVA. Hospitalist service was consulted for admission for acute CVA. Allergies Allergy/AdvReac Type Severity Reaction Status Date / Time No Known Allergies Allergy Verified 10/06/19 09:13 Home Medications Medication Instructions Recorded Confirmed Type lansoprazole [Prevacid 24Hr] 15 mg PO QAM 07/10/20 07/10/20 History Past Med/Surg History Medical History (Updated 07/10/20 @ 20:44 by Bhumi Walker DO) Cigarette smoker History of smoking greater than 50 pack years HTN (hypertension) Toe amputee Surgical History H/O hernia repair Family History (Updated 07/10/20 @ 20:42 by Bhumi Walker DO) Grandmother (Maternal) Stroke Grandfather (Maternal) Stroke Diabetes Mother Hypertension Other Myocardial infarction Denies family history of Ovarian cancer Prostate cancer Breast cancer Colorectal cancer Social History (Updated 07/10/20 @ 20:43 by Bhumi Walker DO) Smoking Status: Former smoker Tobacco Type: Cigarettes packs per day: 2; Cigarettes Per Day: 20-30; Second Hand Exposure: Yes; Do You Dip or Chew Tobacco: No; Tobacco Cessation Education Requested by Patient: No Hx Alcohol Use: Yes Alcohol type: hard liquor Hx Substance Use: No Preferred Language: Turkish Communication Ability: Effective Business Support Associate Required: No Beliefs That Will Affect Care: None marital status: Single Current Living Situation: Family current occupational status: unemployed How many Children do You have: 4 Other Information That Helps Us Care for You: No Feels Safe at Home: Yes Safety Concerns: Feels Safe At This Time caffeine: Yes Dental Care, Regularly: No Physical Activity Frequency: Does not Exercise Seatbelt Use: never Sunscreen Use: No Assistive Devices: None Review of Systems Review of Systems: All systems reviewed & are unremarkable except as noted in HPI & below Constitutional: no fever, no chills and no malaise Respiratory: no cough and no dyspnea Cardiovascular: no chest pain, no palpitations and no edema Gastrointestinal: no abdominal pain, no constipation and no diarrhea/loose stools Physical Exam Constitutional: WD/WN, vitals as above Eyes: PERRL, conjunctivae normal, anicteric sclerae ENMT: external ear and nose normal, oropharynx normal Neck: normal visual inspection Respiratory: normal respiratory effort, lungs clear to auscultation Cardiovascular: RRR, no murmur, no edema Gastrointestinal (Abdomen): normal bowel sounds, soft, nontender, no hepatosplenomegaly Musculoskeletal: no cyanosis or clubbing, extremities motor strength 5/5 Skin: no rashes, warm and dry Neurologic: AAOx3, normal speech. PERRLA, EOMI, no nystagmus Bilateral UE, LE, and face without sensory or motor deficits. II-XII intact bilaterally. No tremor. Psychiatric: A+Ox3, euthymic affect Results & Data Results & Data ([facility]) Vital Signs (Past 12 Hours) Vital Signs Temp Pulse Pulse Resp BP BP Pulse Ox 07/10/20 18:22 80 18 149/91 H 95 07/10/20 16:00 136/76 96 07/10/20 15:30 67 19 122/67 95 07/10/20 15:01 80 16 127/81 96 07/10/20 15:00 73 17 07/10/20 14:32 80 19 95 07/10/20 14:31 83 15 151/102 H 97 07/10/20 14:01 94 H 23 96 07/10/20 14:00 98 H 20 135/100 95 05/02/21 13:38 95 07/10/20 13:36 96 H 16 130/96 97 07/10/20 13:14 36.9 C 92 H 18 152/102 H 97 Code Status & VTE Plan VTE Prophylaxis Plan VTE Prophylaxis will be ordered: Yes Supervising Physician Co-Signing Physician Notes Attending addendum: I have physically seen this patient, have supervised the medical residents activities, and agree with the H&P unless as otherwise noted. Assessment and Plan: Acute/subacute CVA- Ischemic stroke without TPA protocol order set The patient will be admitted to telemetry for serial cardiac enzymes, serial EKG's, cardiac rhythm monitoring and a 2-D echocardiogram with Dopplers. 1.3 cm segment occlusion of right middle cerebral artery with distal reconstitution CT head and MRI brain with multiple acute/subacute infarcts involving the right cerebral hemisphere Check a fasting lipid panel and hemoglobin A1c Tobacco cessation counseling Start aspirin 81 mg every morning start high intensity statin Consult PT/OT/social welfare administrator/neurology Patient will also need to establish routine outpatient medical care Remaining orders and notations as noted Resident Activity Tracking Resident Involvement: Resident Care Provided Care Provided: Adult Hospital Medicine (1) GERD (gastroesophageal reflux disease) Esophagitis presence: without esophagitis Qualified Code(s): K21.9 - Gastro- esophageal reflux disease without esophagitis (2) HTN (hypertension) Hypertension type: essential hypertension Qualified Code(s): I10 - Essential (primary) hypertension
[2020-07-10 20:58] LABS: Chol HDL Ratio 8; Cholesterol 263 mg/dl (0-200); HDL Cholesterol 32 mg/dl; LDL Cholesterol Calculated 169 mg/dl; Triglycerides 311 mg/dl (0-150); VLDL Cholesterol 62 mg/dl
[2020-07-10] MEDS ORDERED: POLYETHYLENE (MIRALAX) 17 GM PACK PO PRN (22:07)
[2020-07-10] MEDS ORDERED: PHARMACIST DISCHARGE MED REC CONSULT PRN (22:07)
[2020-07-10] MEDS ORDERED: ONDANSETRON INJ 2 MG/ML 2 ML VIAL IV PRN (22:07)
[2020-07-10] MEDS ORDERED: ACETAMINOPHEN 325 MG TAB PO PRN (22:07)
--- NOTE | 2020-07-10 22:59 | Electrocardiogram Report ---
Test Reason : Blood Pressure : / mmHG Vent. Rate : 085 BPM Atrial Rate : 085 BPM P-R Int : 138 ms QRS Dur : 144 ms QT Int : 404 ms P-R-T Axes : 049 077 028 degrees QTc Int : 480 ms Normal sinus rhythm Right bundle branch block Abnormal ECG No previous ECGs available Confirmed by Uzair Willis ([id number]) on 07/10/2020 10:59:35 PM Referred By: Confirmed By:Uzair Willis
[2020-07-11 01:24] LABS: Amphetamines+Metham, Urine Neg (Neg); Barbiturates, Urine Neg (Neg); Benzodiazepine, Urine Neg (Neg); Cocaine, Urine Neg (Neg); MDMA (Ecstacy), Urine Neg (Neg); Methadone, Urine Neg (Neg); Opiate, Urine Neg (Neg); Phencyclidine, Urine Neg (Neg)
--- NOTE | 2020-07-11 05:10 | Billing Data ---
Date of Service July 11, 2020 Coding Level of Care Code 07906 Initial Inpt Care Lvl 3
[2020-07-11 07:09] LABS: Basophils # (auto) 0.04 K/uL (0-0.2); Basophils % (auto) 0.6 %; Eosinophils # (auto) 0.05 K/uL (0-0.5); Eosinophils % (auto) 0.7 %; Hematocrit (blood only) 44.2 % (42-52); Hemoglobin 15.8 g/dL (14.0-18.0); Immature Granulocytes # (auto) 0.01 K/uL (0.00-0.02); Immature Granulocytes % (auto) 0.1 %; Lymphocytes # (auto) 2.27 K/uL (1.2-3.4); Lymphocytes % (auto) 31.7 %; Mean Corpuscular Hgb Conc 35.7 g/dL (32-36); Mean Corpuscular Volume 89.7 fL (80-100); Mean Platelet Volume 10.1 fL (7.4-10.4); Monocytes # (auto) 0.38 K/uL (0.11-0.59); Monocytes % (auto) 5.3 %; Neutrophils # (auto) 4.41 K/uL (1.4-6.5); Neutrophils % (auto) 61.6 %; Platelet Count 256 K/uL (130-400); RDW Coefficient of Variation 12.7 % (11.5-14.5); RDW Standard Deviation 41.7 fL (36.4-46.3); Red Blood Count 4.93 M/uL (4.7-6.1); White Blood Count 7.16 K/uL (4.8-10.8)
[2020-07-11 07:18] LABS: Prothrombin Time 10.2 Seconds (9.0-12.0)
[2020-07-11 07:49] LABS: BUN Creatinine Ratio 13.3 (10-20); Calcium 8.4 mg/dl (8.5-10.1); Creatinine Clr Calc Pharmacy 121.9 ml/min; Est GFR (African American) 118.3; Est GFR (Non-African American) 102.1; Potassium 3.8 mmol/L (3.5-5.1)
--- NOTE | 2020-07-11 08:41 | Neurology Consultation ---
Date of Consultation July 11, 2020 Assessment & Plan (1) Acute CVA (cerebrovascular accident): (2) Acute left hemiparesis: (3) Cigarette smoker: (4) HTN (hypertension): (5) Dyslipidemia: this patient had the acute onset of a right hemispheric stroke. I believe this started as a right middle cerebral artery occlusion but then fortunately had collateral flow so he was left only with some moderate amount of watershed infarct in the MCA territory on the right. Clinically he has left hem i paresis and gait disturbance. There is no facial droop, cranial nerve findings, sensory problems, or speech issues. The etiology of this stroke is likely ischemic and related to longstanding cigar ette smoking as well as dyslipidemia and some hypertension. The patient has chronic tinnitus which is likely secondary to noise exposure from a previous occupation. I am not sure if he has some hearing loss at this time. I am concerned that this patient does not fully understand his stroke and its implications. He wants to leave the hospital (which is reasonable) but I am not sure what his plans would be afterwards. I do not think this patient can go back to work right away. Recommendations: 1. agree with 81 mg aspirin tablet daily. 2. This patient would be a high dose statin candidate. 3. Control blood pressure aiming for a mean arterial pressure of 95-100. Today his blood pressure is adequate off medicine. 4. Physical and occupational therapy consult. 5. The patient needs an echocardiogram. 6. Hemoglobin A1c is pending. 7. Consider ENT evaluation as an outpatient for tinnitus and possible hearing loss. 8. patient is going to need at least a week off from work until he can heel his left mihai paresis. 9. most important thing this patient could do, if possible, is to discontinue cigarette smoking. 10. I see no indication for anticoagulation. 11. coagulation laboratory studies are pending. 12. I can follow up as an outpatient if desired. Overall, I spent a total of 90 minutes with this case including review of records, review of MRI films, direct evaluation the patient at bedside, and discussion of the case with the patient at bedside, RN at bedside, and Dr. Mayorga, including differential diagnosis and treatment options. History of Present Illness Reason for Consultation: Patient is a 50-year-old, who I was asked to see the request of Dr. Ayala, for neurologic consultation regarding stroke. Requesting Physician: Dr. Ayala Attending Physician: Livia Mayorga MD History of Present Illness patient denies any history of hypertension, diabetes, strokes in the past, cholesterol issues, or heart disease. He does have some longstanding intermittent tinnitus and has worked for 10 years in a high noise environment on a "[employer]" The patient was in his usual health when on the morning of July 10 he was going outside to smoke a cigarette, holding a cup of coffee, when suddenly he spilled coffee. He felt dizzy in the sense of wooziness and off-balance feeling (not lightheadedness). He noted the tinnitus bilaterally but had no headache, pain, or ear pain. He does not think he has hearing loss. Over the course of the next several hours he fell several times and may be remembers falling to the left. He did not think his limbs had any weakness, numbness, pain. No speech or vision issues. He arrived in the emergency room on Jul 10 1313 with a temperature 36.9, pulse 92 and regular, respiratory rate 18, blood pressure 152/102, and O2 saturation 97%. His neurologic examination was described as nonfocal. CBC, Chem profile, Lyme antibody titers, and urinalysis were unremarkable. He was Covid-19 negative and a chest x-ray was unremarkable. CT scan showed some old white matter spots. MR angiography of the head and neck showed a 1.3 cm right middle cerebral artery occlusion with some collateral flow. There was considerable watershed areas of infarct in the right middle cerebral artery distribution seen on MRI of the brain. There was moderate old small vessel ischemia right greater than left side on the right as well. triglycerides were 311 and total cholesterol 263. hemoglobin A1c is pending. Blood pressure this morning was 120/72. Patient feels that he is about the same with his balance today but he is not dizzy. He does not note any weakness. Allergies Allergy/AdvReac Type Severity Reaction Status Date / Time No Known Allergies Allergy Verified 10/06/19 09:13 Home Medications Medication Instructions Recorded Confirmed Type lansoprazole [Prevacid 24Hr] 15 mg PO QAM 07/10/20 07/10/20 History Patient History Medical History Cigarette smoker History of smoking greater than 50 pack years HTN (hypertension) Toe amputee Surgical History H/O hernia repair Family History Grandmother (Maternal) Stroke Grandfather (Maternal) Stroke Diabetes Mother Hypertension Other Myocardial infarction Denies family history of Ovarian cancer Prostate cancer Breast cancer Colorectal cancer Social History (Updated 07/11/20 @ 08:48 by Orlando Wilson MD) Smoking Status: Current every day smoker Tobacco Type: Cigarettes packs per day: 2; Cigarettes Per Day: 30-40; Second Hand Exposure: Yes; Do You Dip or Chew Tobacco: No; Tobacco Cessation Education Requested by Patient: No Hx Alcohol Use: Yes Alcohol type: hard liquor Alcohol Intake Frequency Comment: 1-2 per week Hx Substance Use: No Preferred Language: Slovak Communication Ability: Effective Secretary [employer] Commission[employer] Required: No Beliefs That Will Affect Care: None marital status: Single Current Living Situation: Family current occupational status: employed 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 [employer] How many Children do You have: 4 Other Information That Helps Us Care for You: No Feels Safe at Home: Yes Safety Concerns: Feels Safe At This Time caffeine: Yes Dental Care, Regularly: No Physical Activity Frequency: Does not Exercise Seatbelt Use: never Sunscreen Use: No Assistive Devices: None Review of Systems Constitutional: no fever, no fatigue and no weakness Eyes: no diplopia, no eye pain and no worsening vision Ear, Nose, Mouth, Throat: + tinnitus; no ear pain, no hearing loss, no dizziness, no hoarseness and no dysphagia Respiratory: no cough and no dyspnea Cardiovascular: no chest pain, no palpitations and no lightheadedness Gastrointestinal: no abdominal pain, no nausea and no vomiting Genitourinary: no dysuria and no urinary incontinence Musculoskeletal: no back pain, no neck pain, no radicular pain, no joint pain and no myalgia Integumentary: no rash and no lesions Neurologic: + gait abnormality; no localized weakness, no generalized weakness, no tingling, no numbness, no tremor(s), no abnormal movements, no headache(s), no abnormal speech, no confusion and no memory loss Psychiatric: no depression, no irritability, no anxiety, no difficulty concentrating, no confusion and no hallucinations Endocrine: no fatigue and no flushing Hematologic / Lymphatic: no easy bleeding and no easy bruising Allergy / Immunological: no urticaria and no problem reported Exam (Neuro) Physical Exam: The patient is right-handed. The patient is awake, alert, and attentive. Speech is normal without any aphasia or dysarthria. he can name objects, repeat phrases, and has normal spontaneous speech. Mentation and thought processes are intact, with orientation to person, place and time, and normal fund of knowledge. Attention and concentration are normal. Mood is very quiet and affect is somewhat flat. This patient is very reticent/taciturn. General appearance and grooming are normal. Short and long- term memory are intact. Pupils are 4 mm bilaterally and reactive to light. Extraocular eye muscles are intact without nystagmus. Visual acuity and visual petersen seem normal grossly to confrontation. There are no deficits to sensation in the face in all 3 distributions of the fifth cranial nerve bilaterally. Corneal reflexes are positive bilaterally. Facial strength and symmetry was normal bilaterally. Hearing seems normal to whisper and finger rub bilaterally. Palate moves well without asymmetry. There is normal sternocleidomastoid and trapezius (shoulder shrug) strength bilaterally. Tongue is midline with good strength bilaterally. patient has adentia Neck has a full range of motion without discomfort. There are no cervical bruits bilaterally. There are no cranial or ocular bruits. Heart is without murmur. There is a regular rhythm and rate. Cervical, thoracic, and lumbar spine are nontender to palpation. Gait is narrow based, but unstable. He limps a little favoring the left leg. With outstretched arms there is a very mild drift on the left. There are no resting, postural, or action tremors. There is no ataxia with finger to nose testing. There is good facility in the hands. No other abnormal involuntary movements are noted. Motor strength is 5/5 diffusely in the right upper extremity including deltoids, biceps, triceps, brachioradialis, wrist flexors and extensors, loading checker, and intrinsic hand muscles. left upper extremity was 4/5 diffusely. Motor strength is 5/5 diffusely in the right lower extremity,including hip flexors, quadriceps, hamstrings, gastrocnemius, tibialis anterior, tibialis posterior, and Peroneii muscles. the left lower extremity is 4/diffusely. Toe extensors are normal and there is good bulk in the extensor digitorum brevis muscles bilaterally. He is missing his right 5th toe. The limbs have good tone without rigidity or spasticity. There is no atrophy noted in the muscles. Muscle bulk is normal, there is no tenderness to palpation, no myotonia to percussion, and no fasciculations seen. Sensory examination is intact to touch and pin throughout all 4 limbs diffusely. Reflexes are 2/4 in the biceps, triceps, and brachioradialis tendons bilaterally. The right quadriceps and Achilles tendons are 2/4 and the left are 3/4. There is no clonus bilaterally. Toes are downgoing with plantar stimulation on the right and equivocal to upgoing on the left Peripheral pulses are present and of normal quality distally in all 4 limbs. There is no peripheral edema noted in the limbs. Results & Data ([facility]) Vital Signs (Past 12 Hours) Vital Signs Temp Pulse Pulse Resp BP BP BP 07/11/20 07:18 37.3 C 66 19 120/72 07/11/20 03:09 37.1 C 68 18 07/10/20 23:19 75 07/10/20 22:26 36.9 C 76 20 127/84 07/10/20 22:09 36.9 C 76 20 127/84 07/10/20 22:07 07/10/20 22:06 75 07/10/20 21:54 84 18 121/77 BP Pulse Ox Pulse Ox 07/11/20 07:18 93 07/11/20 03:09 131/82 94 07/10/20 23:19 07/10/20 22:26 94 07/10/20 22:09 94 07/10/20 22:07 94 07/10/20 22:06 07/10/20 21:54 94 PG Care Time/CCT Total # of Minutes Spent Total Time Spent with Patient: Total time spent is greater than 50% in coordination of care (as documented) at patient's floor/unit and/or counseling patient: Coding Level of Care Code 98501 Inpt Consult Level 5 Diagnoses Acute CVA (cerebrovascular accident) I63.9 Acute left hemiparesis G81.94 Cigarette smoker F17.210 HTN (hypertension) I10 Hypertension type: essential hypertension Dyslipidemia E78.5 Time Spent (min) 90 (1) HTN (hypertension) Hypertension type: essential hypertension Qualified Code(s): I10 - Essential (primary) hypertension
[2020-07-11] MEDS ORDERED: HEPARIN SOD 5,000 UNIT/0.5 ML VIAL SQ SCH (09:00)
[2020-07-11] MEDS ORDERED: ASPIRIN 81 MG ECTAB PO SCH (09:00)
[2020-07-11] MEDS ORDERED: ATORVASTATIN 40 MG TAB PO SCH (09:00)
[2020-07-11] MEDS ORDERED: NICOTINE 21 MG/24 HR TDSY TD SCH (09:00)
[2020-07-11 09:34] LABS: Estimated Average Glucose 111 mg/dl; Hemoglobin A1C 5.5 % (4.5-5.6)
--- NOTE | 2020-07-11 10:30 | XCELERA ---
[id number]
--- NOTE | 2020-07-11 13:13 | Medical Student Progress Note ---
Date of Service July 11, 2020 Assessment & Plan (1) Acute CVA (cerebrovascular accident): 50 yo M PMHx significant smoking history (50 pack year) admitted for acute CVA of the right MCA with a watershed distribution. Acute CVA -Presents with dizziness, falls, and left ear ringing that started yesterday. -Head CT performed: 10 mm hypodense focus of the right lentiform nucleus suggests chronic lacunar infarct. Concern for numerous acute or subacute small infarcts throughout the RIGHT cerebral hemispheres. -Head/Neck CTA performed: Segment of the RIGHT MCA is occluded. There is reconstitution of flow within the distal M1 segment just proximal to the bifurcation. -Brain MRI performed: Numerous small acute infarcts of the RIGHT cerebral hemisphere in watershed distribution. Mild to moderate scattered T2/FLAIR hyperintensities throughout white matter favoring early chronic microvascular ischemic disease. -Stroke is likely ischemic in nature due to longstanding cigarette use, dyslipidemia, and hypertension. -Given patient's age, while extensive smoking history likely contributed greatly to patient's CVA, have also ordered hypercoagulability workup (pending). -Hgb A1c WNL (5.5%) -TTE showed no evidence of PFO. -Continuous cardiac monitoring, frequent neuro checks. PT/OT ordered. No concerns with swallowing; Heart Healthy diet. Suspect patient will be discharged to home rather than to rehab facility. Dyslipidemia: -Lipid panel ordered: total cholesterol 263, LDL 169, HDL 32, TG 311. -Will start patient on aspirin and high-intensity statin. -Recheck cholesterol panel 6 weeks after statin initiation with liver panel. Smoking History: -50 pack year history. currently smokes 1-2 packs per day. -Smoking cessation urged. Pt enjoys smoking because "it calms his nerves". -Has tried Chantix in the past but stopped due to cost. Consider bupropion for smoking cessation. -Nicotine patch during hospital admission. HTN: -Patient was hypertensive on admission and at a physical exam 1 year ago, but remains in a normal range without anti-hypertensive medication. -Allow for permissive HTN in the acute CVA period, however, will require long- term control of BP for secondary prevention. Not to exceed 220 systolic and 120 diastolic. -BP remains stable in the hospital without anti-hypertensive medications. GERD: -Continue PPI. -Patient does not have insurance which is of major concern to him and his family regarding cost; Advertising Traffic Manager consult placed to assist with insurance application. Code Status: FULL CODE FEN: Heart Healthy DVT ppx: Heparin 5000u SQ BID Dispo: telemetry for neuro checks, cardiac monitoring, stroke work up (2) Acute left hemiparesis: (3) Cigarette smoker: (4) HTN (hypertension): Hypertension type: essential hypertension Qualified Code(s): I10 - Essential (primary) hypertension (5) Dyslipidemia: Admission and Anticipated Discharge Date Admission Date: July 10, 2020 Subjective Mr. Hoffman is alert in his bed. He had no acute events overnight. He did not talk much and responded to questions with short responses. He had a hard time determining if his gait and dizziness have changed since admission. He admits to being slightly unsteady on his feet when he was working with physical therapy. He is working with case management to get set up with insurance and a PCP for follow-up care. He was counseled about his diagnosis of stroke CVA and the severity of the illness. He understands that this is likely due to poor lifestyle habits (diet and smoking in particular). Review of Systems Constitutional: no fever, no chills and no weakness Eyes: no diplopia and no problem reported Ear, Nose, Mouth, Throat: + tinnitus; no ear pain, no hearing loss, no dizziness, no hoarseness and no dysphagia Respiratory: no dyspnea Cardiovascular: no chest pain and no dyspnea Neurologic: + gait abnormality; no localized weakness, no generalized weakness, no tingling, no numbness, no tremor(s), no abnormal movements, no headache(s), no abnormal speech, no confusion and no memory loss Physical Exam Constitutional: WD/WN, vitals as above well developed; no acute distress Eyes: PERRL, conjunctivae normal, anicteric sclerae ENMT: external ear and nose normal, oropharynx normal Neck: normal visual inspection Respiratory: normal respiratory effort, lungs clear to auscultation Cardiovascular: RRR, no murmur, no edema Gastrointestinal (Abdomen): normal bowel sounds, soft, nontender, no hepatosplenomegaly Musculoskeletal: no cyanosis or clubbing, extremities motor strength 5/5 Skin: no rashes, warm and dry Neurologic: PERRL, EOMI, accommodation nl, no face palsy, no dysarthria CN's II-XI intact bilaterally Speech / Cognition: normal speech Gait: + ataxic gait Psychiatric: Orientation: alert and oriented x 3 Affect: + flat affect Results & Data ([facility]) Vital Signs (Past 12 Hours) Vital Signs Temp Pulse Resp BP BP Pulse Ox 07/11/20 11:07 37.0 C 66 19 130/87 95 07/11/20 07:18 37.3 C 66 19 120/72 93 07/11/20 03:09 37.1 C 68 18 131/82 94
--- NOTE | 2020-07-11 16:51 | Discharge Summary ---
Date of Service July 11, 2020 Admission HPI Per Admitting Provider 50 yo M PMHx HTN, significant smoking history presented to the ER with his mother for complaints of dizziness and falls starting yesterday. Specifically, he reports feeling significantly off-balance, and has had about 7 falls since yesterday afternoon. He also endorses ringing in his left ear, however the ringing is chronic. He denies headache, chest pain, SOB, fevers or chills, abdominal pain, nausea, vomiting. He endorses significant smoking history, at least 50 pack years of smoking, and he currently smokes 1.5-2 packs daily. Has "tried quitting in the past, but Chantix was too expensive". His mother and brother who also live with him also smoke. History of CVA in his maternal grandmother and grandfather. No history of DVT/PE to his or his mother's knowledge. Does not report having a PCP; last seen about a year ago for a physical "just so I could go to work". Per EMR at that time his BP was mildly elevated and he was advised to return for BP recheck, but did not. In the ER patient had CT Head, CTA Head/Neck which showed chronic right lacunar infarct and numerous acute/subacute right cerebral hemisphere strokes, with segment of right MCA occluded. MRI Brain performed which confirmed numerous small acute right cerebral hemisphere infarcts in watershed distribution. Hospitalist service was consulted for admission for acute CVA. Hospitalist service was consulted for admission for acute CVA. Admission Exam Per Admitting Provider Constitutional: WD/WN, vitals as above Eyes: PERRL, conjunctivae normal, anicteric sclerae ENMT: external ear and nose normal, oropharynx normal Neck: normal visual inspection Respiratory: normal respiratory effort, lungs clear to auscultation Cardiovascular: RRR, no murmur, no edema Gastrointestinal (Abdomen): normal bowel sounds, soft, nontender, no hepatosplenomegaly Musculoskeletal: no cyanosis or clubbing, extremities motor strength 5/5 Skin: no rashes, warm and dry Neurologic: AAOx3, normal speech. PERRLA, EOMI, no nystagmus Bilateral UE, LE, and face without sensory or motor deficits. II-XII intact bilaterally. No tremor. Psychiatric: A+Ox3, euthymic affect Principal Diagnosis Ischemic Stroke Discharge Exam Constitutional WD/WN, vitals as above + disheveled; no acute distress and + not healthy appearing Eyes + anicteric sclerae ENMT external ear and nose normal, oropharynx normal Neck normal visual inspection and trachea midline Respiratory normal respiratory effort, lungs clear to auscultation Cardiovascular RRR, no murmur, no edema Heart Sounds: normal S1 and normal S2 Gastrointestinal (Abdomen) normal bowel sounds, soft, nontender, no hepatosplenomegaly Skin no rashes, warm and dry Neurologic Motor/Sensory: + abnormal movement (L sided hemiparesia ) Gait: + ataxic gait Psychiatric Apperance: + disheveled Eye Contact: + fair eye contact Affect: + flat affect Insight: + limited insight Discharge Data Allergies Allergy/AdvReac Type Severity Reaction Status Date / Time No Known Allergies Allergy Verified 10/06/19 09:13 Consultations 07/10/20 20:11 ED Decision to Admit Stat 07/10/20 20:35 Consult Neurology Routine Ordered Studies 07/10/20 13:48 CT head/brain wo con Stat 07/10/20 13:58 CT angio head w con Stat CT angio neck with con Stat 07/10/20 16:28 MR brain wo con Stat Hospital Course (1) Acute CVA (cerebrovascular accident): Mr. Hoffman is a 50 yo M with PMHx of significant tobacco abuse (50 pack years) who presented to [facility] for dizziness and imbalance, found to have acute CVA of the right MCA with a watershed distribution. Acute CVA -Head CT performed: 10 mm hypodense focus of the right lentiform nucleus suggests chronic lacunar infarct. Concern for numerous acute or subacute small infarcts throughout the RIGHT cerebral hemispheres. -Head/Neck CTA performed: Segment of the RIGHT MCA is occluded. There is reconstitution of flow within the distal M1 segment just proximal to the bifurcation. -Brain MRI performed: Numerous small acute infarcts of the RIGHT cerebral hemisphere in watershed distribution. Mild to moderate scattered T2/FLAIR hyperintensities throughout white matter favoring early chronic microvascular ischemic disease. -Stroke is likely ischemic in nature due to longstanding tobacco smoke and dyslipidemia. -Hgb A1c WNL (5.5%) -TTE showed no evidence of PFO -While extensive smoking history should not be underestimated, a hypercoagulability workup was initiated on admission to assess for possible contributory effect (pending at the time of discharge), due to patient's relatively young age -left sided hemiparesis and gait disturbance notable on neuro exam -Patient signed himself out AMA on Day 2 of his hospital stay. Outpatient items to do: Surveil for post-stroke depression. Reinforce need for risk factor optimization. Cognitive Deficit - patient seemed to lack insight on the magnitude of his stroke diagnosis. His demeanor was "dazed" and his affect was flat - MOCA testing revealed a score of 17 - suspect patient has suffered irreversible cognitive change from cumulative ischemic cerebrovascular burden vs. secondary to mood disorder (post-stroke depression) Outpatient items to do: Consider neuropsych testing to elicit etiology. Dyslipidemia: -Lipid panel ordered: total cholesterol 263, LDL 169, HDL 32, ratio 8.2 TG 311. -Will start patient on baby aspirin and high-intensity statin. Outpatient items to do: Recheck cholesterol panel 6 weeks after statin initiation with AST level Tobacco Abuse: -50 pack year history. currently smokes 1-2 packs per day. -Smoking cessation urged. Pt enjoys smoking because "it calms his nerves". -Has tried Chantix in the past but stopped due to cost. Outpatient items to do: It is possible patient is smoking to self-medicate for anxiety disorder - consider addressing underlying anxiety. Patient will qualify for low dose lung CT at age 52 for lung cancer screening HTN: -questionable diagnosis -Patient was hypertensive on admission and at a physical exam 1 year ago, but remains in a normal range without anti-hypertensive medication. Outpatient items to do: blood pressure surveillance. If patient is above goal on at least 2 checks, consider initiation of pharmacotherapy GERD: -Continue PPI. -Patient does not have insurance which is of major concern to him and his family; [employer] Physicist consult placed to assist with insurance application. Total Time Total Time Spent Total Time Spent (In Minutes): see attending attestation Discharge Plan Discharge Items Patient Disposition: Against Medical Advice Reason For Visit: ACUTE CVA Condition on Discharge: Fair Activity: Resume your previous activity Non-emergency contact: Primary Care Provider Follow-up/Referrals: Pankaj Ha DO [Primary Care Provider] - Addtl Architectural Engineer Provider Instructions: You were hospitalized at [facility] for evaluation of dizzine ss - a cat scan and MRI of your neck and brain were ordered and showed you had suffered an ischemic stroke (ie blood flow to your brain was temporarily cut off). We discussed how serious strokes are - we noticed your gait was slightly altered and your left side of the body was weakened. These changes are likely due to the stroke, and may be permanent. Cigarette smoking and elevated cholesterol levels are likely the reason for your stroke. We highly recommend you become tobacco free, as smoking poses the highest risk to your health. We recommend you discuss different options for becoming tobacco free (ie medications, nicotine replacement) with your primary care doctor. We started you on a new medication called Lipitor (atorvastatin) to help lower your cholesterol. Please take 80mg, once daily. We also started you on a daily baby aspiring. Please take 81mg, daily. You do not need a prescription for aspirin - this is available over the counter. Please follow up with your primary care doctor within the next week. Pending Studies at Discharge: Yes Stand-Alone Forms: My [facility], Smoking Cessation Medications and DC Order Prescriptions: New atorvastatin 40 mg Tablet 80 mg PO QAM 30 Days Qty: 60 RF: 0 aspirin 81 mg Tablet,Delayed Release (Dr/Ec) 81 mg PO QAM 30 Days Qty: 30 RF: 0 Continued lansoprazole [Prevacid 24Hr] 15 mg Capsule,Delayed Release(Dr/Ec) 15 mg PO QAM RF: 0 Discharge Orders: Left Against Medical Advice (Routine); Ordered 07/11/20 Ordered By: Cherelle Benoit Admission Data Admit Date/Time: 07/10/20 20:35 Attending Provider: Livia Mayorga Admit Provider: Bhumi Walker Primary Care Provider: Pankaj Ha Other Providers: Edy Garzon Christina R. Other Interventions: Discharge Summary Assessment (RN) Last Done: 07/11/20 17:11 Supervising Physician Co-Signing Physician Notes Resident Physician Supervision Note: I independently interviewed and examined the patient and verified the becerril history and physical, reviewed labs and image studies, discussed the case with the resident Dr. Benoit and agree with the findings and care plan. Resident Activity Tracking Resident Involvement: Resident Care Provided Care Provided: Adult Hospital Medicine
[2020-07-13 22:50] LABS: Anti Cardiolipin Ab IgG <14 GPL; Anti Cardiolipin Ab IgM <12 MPL; Anti-Thrombin III Activity 99 % normal (80-135); Protein S Functional(Activity) 107 % (70-150)
[2020-07-14 20:46] LABS: B2 Glycoprotein IgG <9 SGU (<=20); B2 Glycoprotein IgM <9 SMU (<=20); PTT LA Screen 35 sec (<=40)
[2020-07-15 22:03] LABS: Factor 5 Mutation NEGATIVE
== END 2020-07-11 17:12 | disposition left against medical advice (07) | DRG 65 ==
LOC: ED 13:00 → SUATTDRO 20:35 → 2S 20:35